=== PATIENT | male | born 1985 | race Caucasian/White ===

== ENCOUNTER 2024-01-15 21:07 | Emergency (ER) | payer MEDICAID ==
[~2024-01-15] VITALS: Ht 167.6 cm; Wt 78.0 kg
[2024-01-15 22:52] VITALS: BP 139/98; PULSE 82; RESP 18; TEMP 98.5; O2SAT 100
[2024-01-15] MEDS ORDERED: LACTATED RINGERS 1,000 ML IV SCH (23:45)
[2024-01-16 00:01] LABS: BASOPHILS % 0.6 % (0.0-2.0); EOSINOPHILS % 1.4 % (0.0-5.0); HEMATOCRIT. 42.4 % (42.0-52.0); LYMPHOCYTES % 25.2 % (20.0-50.0); MEAN CORPUSCULAR HEMOGLOBIN 32.7 pg (28.0-32.0); MEAN CORPUSCULAR HGB CONC 35.2 g/dL (31.0-37.0); MEAN CORPUSCULAR VOLUME 92.8 fL (80.0-94.0); MEAN PLATELET VOLUME 7.3 fl (7.4-10.4); MONOCYTES % 6.2 % (2.0-8.0); NEUTROPHILS % 66.6 % (40.0-76.0); PLATELET 374 x1000/uL (130-400); RED BLOOD CELL COUNT 4.57 mill/uL (4.7-6.1); RED CELL DISTRIBUTION WIDTH 13.1 % (11.6-14.6); WHITE BLOOD COUNT 7.9 x1000/uL (4.5-11.0)
[2024-01-16 00:08] LABS: CHLORIDE 105 mEq/L (98-107); POTASSIUM 3.8 mEq/L (3.5-5.1); SODIUM 140 mEq/L (136-145)
[2024-01-16 00:09] LABS: CALCIUM 9.4 mg/dL (8.7-10.4); CARBON DIOXIDE 27 mEq/L (21-32)
[2024-01-16 00:14] LABS: CREATININE 0.9 mg/dL (0.6-1.3); GLUCOSE 105 mg/dL (70-105); UREA NITROGEN BLOOD 8 mg/dL (9-23)
[2024-01-16] MEDS: METOCLOPRAMIDE HCL 10MG/2ML VIAL IV ONE (00:20)
[2024-01-16] MEDS: ACETAMINOPHEN 1000MG/100ML 100 ML IV ONE (00:30)
== END 2024-01-16 01:51 | disposition home or self-care (01) ==
LOC: ER 21:07
DX: R51.9 Headache, unspecified (principal)
CPT/HCPCS: 80048; 85025; 36415; 99285; 70450; 96365; 96375; J2765; Z7610 ×2; J0131